=== PATIENT | female | born 1950 | race Caucasian/White ===

== ENCOUNTER → 2016-04-07 | Outpatient (CLI) | payer MEDICARE, OTHER | LOC: LAB 07:25 | PROVIDERS: ATTEND Family Medicine | DX: E11.9 Type 2 diabetes mellitus without complications (principal); G25.81 Restless legs syndrome; D50.9 Iron deficiency anemia, unspecified | CPT/HCPCS: 36415; 83036; 83540 ==

== ENCOUNTER → 2016-05-23 | Outpatient (REF) | payer MEDICARE, OTHER ==
[2016-05-23 16:13] LABS: BASOPHILS % (AUTO) 1 % (0-2); EOSINOPHILS # (AUTO) 0.2 10^3uL; EOSINOPHILS % (AUTO) 5 % (0-4); LYMPHOCYTES # (AUTO) 1.3 X10^3; MEAN CORPUSCULAR HEMOGLOBIN 30.1 PG (26.0-34.0); MEAN CORPUSCULAR HGB CONC 33.3 g/dL (31.0-37.0); MEAN CORPUSCULAR VOLUME 90 FL (80-100); MEAN PLATELET VOLUME 12.2 FL (6.0-9.5); MONOCYTES # (AUTO) 0.6 X10^3; MONOCYTES % (AUTO) 12 % (3-11); NEUTROPHILS % (AUTO) 58 % (51-67); PLATELET COUNT 213 10^3uL (150-450)
== END ==
LOC: LAB 15:06
PROVIDERS: ATTEND Family Medicine
DX: R06.09 Other forms of dyspnea (principal); I49.8 Other specified cardiac arrhythmias; E03.8 Other specified hypothyroidism
CPT/HCPCS: 84439; 84443; 85025

== ENCOUNTER → 2016-05-23 | Outpatient (CLI) | payer MEDICARE, OTHER | LOC: RAD 15:35 | PROVIDERS: ATTEND Family Medicine | DX: R06.09 Other forms of dyspnea (principal); I49.8 Other specified cardiac arrhythmias; E03.8 Other specified hypothyroidism | CPT/HCPCS: 71020 ==